=== PATIENT | female | born 1955 | race Hispanic/Latino ===

== ENCOUNTER 2018-01-01 16:00 | Emergency (ER) | payer MEDICAID, OTHER ==
--- NOTE | 2018-01-01 17:06 | ED PDOC ---
HPI: Nose Bleed Time Seen by Provider: 01/01/18 16:22 Chief Complaint (Nursing): Abnormal Skin Integrity Chief Complaint (Provider): Nose bleed s/p fall History Per: Patient History/Exam Limitations: no limitations Onset/Duration Of Symptoms: Mins Current Symptoms Are (Timing): Still Present Location Of Bleeding: Both Nares Additional Complaint(s): 62 yo female with no medical problems presents with nose bleed after trip and fall. Pt states she had 2 beers today and she was walking home. Pt states she felt her shoe get caught on something and fell. No LOC. Pt denies dizziness, chest pain, SOB, etc. Past Medical History Reviewed: Historical Data, Nursing Documentation, Vital Signs Vital Signs: Last Vital Signs Temp 96.7 F L 01/01/18 16:04 Pulse 111 H 01/01/18 16:04 Resp 18 01/01/18 16:04 BP 118/81 01/01/18 16:04 Pulse Ox 99 01/01/18 16:04 - Medical History PMH: No Chronic Diseases - Surgical History Surgical History: No Surg Hx - Family History Family History: States: Unknown Family Hx - Living Arrangements Living Arrangements: With Family - Social History Current smoker - smoking cessation education provided: No - Home Medications Home Medications: Ambulatory Orders Medication Instructions Recorded traMADol [Ultram] 50 mg PO Q6H PRN #15 tab 01/10/17 Amoxicillin/Clavulanate [Augmentin 1 tab PO BID #20 tab 01/01/18 875 MG-125 MG] - Allergies Allergies/Adverse Reactions: Allergies Allergy/AdvReac Type Severity Reaction Status Date / Time No Known Allergies Allergy Verified 01/10/17 17:01 Review of Systems ROS Statement: Except As Marked, All Systems Reviewed And Found Negative Constitutional: Negative for: Fever, Chills ENT: Positive for: Other (Nose bleed) Cardiovascular: Negative for: Chest Pain, Palpitations Respiratory: Negative for: Shortness of Breath Skin: Positive for: Other Physical Exam - Reviewed Nursing Documentation Reviewed: Yes Vital Signs Reviewed: Yes - Physical Exam Appears: Positive for: Well, Non-toxic, No Acute Distress Head Exam: Positive for: ATRAUMATIC, NORMAL INSPECTION, NORMOCEPHALIC Skin: Positive for: Warm. Negative for: Normal Color (1 cm laceration, nasal bridge ) Eye Exam: Positive for: Normal appearance ENT: Positive for: Normal ENT Inspection Neck: Positive for: Normal, Painless ROM Cardiovascular/Chest: Positive for: Regular Rate, Rhythm Respiratory: Positive for: Normal Breath Sounds. Negative for: Accessory Muscle Use Back: Positive for: Normal Inspection Extremity: Positive for: Normal ROM Neurologic/Psych: Positive for: Alert, metal drawer II-XII, Oriented, Gait - ECG O2 Sat by Pulse Oximetry: 99 Disposition - Clinical Impression Clinical Impression: Nasal fracture, Nasal laceration, Tetanus toxoid vaccination administered at current visit - Patient ED Disposition Is Patient to be Admitted: No Counseled Patient/Family Regarding: Diagnosis, Need For Followup - Disposition Disposition: Routine/Home Disposition Time: 19:29 Condition: STABLE Prescriptions: Amoxicillin/Clavulanate [Augmentin 875 MG-125 MG] 1 tab PO BID #20 tab Instructions: Nasal Fracture (ED), Care For Your Absorbable Stitches (ED) Forms: [employer] ([place]ani)
[2018-01-01] MEDS ORDERED: Lidocaine 1% (10 ml) Inj INFIL STA (17:55)
[2018-01-01] MEDS ORDERED: Lidocaine 1% Inj (20ml) ONE (18:21)
--- NOTE | 2018-01-01 18:28 | CT ---
PROCEDURE: CT HEAD WITHOUT CONTRAST. HISTORY: facial/forehead injury COMPARISON: None available. TECHNIQUE: Axial computed tomography images were obtained through the head/brain without intravenous contrast. Radiation dose: Total exam DLP = 774.62 mGy-cm. This CT exam was performed using one or more of the following dose reduction techniques: Automated exposure control, adjustment of the mA and/or kV according to patient size, and/or use of iterative reconstruction technique. FINDINGS: HEMORRHAGE: No intracranial hemorrhage. BRAIN: Diffuse atrophy with prominence of the ventricles and sulci noted. No mass effect or edema. The med[place]-white matter differentiation appears intact. Mild scattered nonspecific white matter changes. Please note that MRI with diffusion imaging is more sensitive in the detection of acute ischemic event. VENTRICLES: No hydrocephalus. CALVARIUM: Unremarkable. PARANASAL SINUSES: Unremarkable as visualized. No significant inflammatory changes. MASTOID AIR CELLS: Unremarkable as visualized. No inflammatory changes. OTHER FINDINGS: Left facial/nasal soft tissue swelling. IMPRESSION: No acute intracranial pathology identified. Left facial/nasal soft tissue swelling.
--- NOTE | 2018-01-01 18:37 | CT ---
CT maxillofacial bones without IV contrast Indication: Facial injury Comparison: None available Technique: Axial computed tomography images were obtained of the maxillofacial bones without the use of intravenous contrast. Coronal and sagittal reformatted images were generated and reviewed. This CT exam was performed using 1 or more of the following dose reduction techniques: Automated exposure control, adjustment of the MAA and/or kV according to patient size, and/or use of iterative reconstruction technique. Radiation dose: Total exam DLP = 778.72 mGy-cm. Findings: Streak artifact from dental hardware. Left scalp soft tissue swelling. Bilateral comminuted nasal bone fracture deformities and associated soft tissue swelling. Deviated nasal septum. No additional fracture identified. The orbits appear unremarkable. The temporomandibular joints are located. The mastoid air cells appear clear. The paranasal sinuses appear clear. Limited visualized portions of the brain appear grossly unremarkable. Impression: Comminuted bilateral nasal bone fracture deformities and associated soft tissue swelling. Deviated nasal septum. Left scalp soft tissue swelling.
[2018-01-01 19:44] VITALS: BP 117/63; PULSE 83; RESP 16; TEMP 98; O2SAT 98
== END 2018-01-01 19:42 | disposition home or self-care (01) ==
LOC: H.ER 16:00
DX: S01.21XA Laceration without foreign body of nose, initial encounter (principal); S02.2XXA Fracture of nasal bones, initial encounter for closed fracture; W01.0XXA Fall on same level from slipping, tripping and stumbling without subsequent striking against object, initial encounter; Y92.89 Other specified places as the place of occurrence of the external cause; J34.2 Deviated nasal septum